=== PATIENT | male | born 1990 | race Caucasian/White ===

== ENCOUNTER 2024-06-05 20:18 | Emergency (ER) | payer OTHER ==
[~2024-06-05] VITALS: Ht 177.8 cm; Wt 99.8 kg
== END 2024-06-05 21:44 | disposition home or self-care (01) ==
LOC: ED 20:18 → EDBD 20:21 → ED 20:21
DX: K40.90 Unilateral inguinal hernia, without obstruction or gangrene, not specified as recurrent (principal)

== ENCOUNTER → 2024-07-01 | Day surgery (SDC) | payer OTHER ==
[~2024-07-01] VITALS: Ht 180.3 cm; Wt 111.1 kg
[~2024-07-01] MED LIST: ACETAMINOPHEN 100 ML IV ONE; BUPIVACAINE 0.5% 30 ML IV ONE; COLACE100 MG PO; Dexamethasone Sodium Phospha 10 MG/1 ML VIAL IV ONE; HYDROmorphONE Hydrochloride 0.5 MG/0.5 ML SYRINGE IV PRN; Lactated Ringer's Solution 1,000 ML IV ONE; Lidocaine Hydrochloride 2% 10 ML AMP IM ONE; Midazolam Hydrochloride 2 MG/2 ML VIAL IV ONE; Ondansetron Hydrochloride 4 MG/2 ML VIAL IV ONE; PERCOCET 5-3251 EACH PO; PROPOFOL 200 MG/20 ML VIAL IV ONE; ROCURONIUM BROMIDE 50 MG/5 ML SYRINGE IV ONE; SEVOFLURANE 250 ML BOT INH ONE; SUGAMMADEX SODIUM 200 MG/2 ML VIAL IV ONE; ceFAZolin sodium/sodium chlor 20 ML IV ONE; fentaNYL CITRATE 100 MCG/2 ML VIAL IV ONE
[2024-07-01 09:06] VITALS: BP 119/67
[2024-07-01 11:26] VITALS: BP 118/74
[2024-07-01 11:41] VITALS: BP 114/64
[2024-07-01 11:56] VITALS: BP 108/59
[2024-07-01 12:15] VITALS: BP 102/53
[2024-07-01 12:26] VITALS: BP 103/59
== END | disposition home or self-care (01) ==
LOC: SDC 06-27 08:45
PROVIDERS: ATTEND Surgery
DX: K40.30 Unilateral inguinal hernia, with obstruction, without gangrene, not specified as recurrent (principal)